=== PATIENT | male | born 1940 | race Hispanic/Latino ===

== ENCOUNTER → 2021-02-14 | Day surgery (SDC) | payer MEDICARE ==
[2021-02-11 13:04] LABS: BASOPHILS % 0.5 % (0.0-1.0); EOSINOPHILS # (AUTO) 0.2 (0.0-0.4); EOSINOPHILS % 2.2 % (0.0-6.0); HEMATOCRIT 33.2 % (38.2-49.6); HEMOGLOBIN 10.4 g/dL (14.0-18.0); LYMPHOCYTES % 38.8 % (18.0-39.1); MEAN CORPUSCULAR HEMOGLOBIN 25.8 pg (28-32); MEAN CORPUSCULAR HGB CONC 31.3 g/dL (31-35); MEAN CORPUSCULAR VOLUME 82.4 fL (81-99); MONOCYTES # (AUTO) 0.5 (0.2-0.8); NEUTROPHILS % 52.1 % (38.7-80.0); PLATELET COUNT 156 x10e3/uL (140-360); RED BLOOD COUNT 4.03 x10e6/uL (4.3-5.7); RED CELL DISTRIBUTION WIDTH 15.4 % (11.7-14.4)
[2021-02-11 14:10] LABS: ANION GAP 13.3 mmol/L (8-16); CALCIUM 9.5 mg/dL (8.4-10.2); CREATININE, SERUM 1.44 mg/dL (0.72-1.25); POTASSIUM 4.3 mmol/L (3.5-5.1)
[~2021-02-14] MED LIST: BACITRACIN ZINC 15 GM OINT ONE; BUPIVACAINE 0.25% 30ML SDV ONE; CEFAZOLIN SOD 1 GM VIAL ONE; EPHEDRINE SULFATE INJ 50 MG/ML VIAL ONE; FENTANYL CITRATE/PF 100MCG/2 ML INJ ONE; FLOMAX0.4 MG PO; LEVEMIR FL100 UNIT/1 SC; LEXAPRO10 MG PO; LIDOCAINE 1% W/EPINEPHRINE 20 ML VIAL ONE; LIDOCAINE HCL 1% LOCAL INJ 20 ML VIAL ONE; LIDOCAINE HCL 2% LOCAL INJ 5 ML SDV VIAL INJ ONE; METOPROLOL SUCC25 MG PO; NOVOLOG100 UNIT/1 SC; ONDANSETRON HCL INJ 2MG/ML 2ML 2 MG/ML VIAL ONE; POVIDONE IODINE 0.05% 0.05 % ML PO ONE; PROPOFOL IV EMULSION 10 MG/ML 20 ML VIAL ONE; SEVOFLURANE INHAL SOLN 250 ML PEN BTL ONE; SIMVASTATIN40 MG PO; TRAZODONE HCL50 MG PO; ZESTRIL2.5 MG PO
[2021-02-14 10:10] VITALS: BP 133/82
== END | disposition home or self-care (01) ==
LOC: OR 05:44
PROVIDERS: ATTEND Surgery
DX: D49.2 Neoplasm of unspecified behavior of bone, soft tissue, and skin (principal); E11.9 Type 2 diabetes mellitus without complications; I10 Essential (primary) hypertension; E78.5 Hyperlipidemia, unspecified; Z99.81 Dependence on supplemental oxygen; Z01.810 Encounter for preprocedural cardiovascular examination; Z01.812 Encounter for preprocedural laboratory examination; Z01.818 Encounter for other preprocedural examination; Z20.822 Contact with and (suspected) exposure to COVID-19; Z79.4 Long term (current) use of insulin
CPT/HCPCS: 14040; 36415 ×2; 71046; 80048; 82948; 85025; 88305; 88365; 93005; J0690; J2001; J2405; J2704; J3010; U0002

== ENCOUNTER 2023-10-16 13:00 | Emergency (ER) | payer MEDICARE ==
[~2023-10-16] VITALS: Ht 165.1 cm; Wt 63.5 kg
[~2023-10-16 13:00] MED LIST changes: -BACITRACIN ZINC 15 GM OINT ONE; -BUPIVACAINE 0.25% 30ML SDV ONE; -CEFAZOLIN SOD 1 GM VIAL ONE; -EPHEDRINE SULFATE INJ 50 MG/ML VIAL ONE; -FENTANYL CITRATE/PF 100MCG/2 ML INJ ONE; -LIDOCAINE 1% W/EPINEPHRINE 20 ML VIAL ONE; -LIDOCAINE HCL 1% LOCAL INJ 20 ML VIAL ONE; -LIDOCAINE HCL 2% LOCAL INJ 5 ML SDV VIAL INJ ONE; -ONDANSETRON HCL INJ 2MG/ML 2ML 2 MG/ML VIAL ONE; -POVIDONE IODINE 0.05% 0.05 % ML PO ONE; -PROPOFOL IV EMULSION 10 MG/ML 20 ML VIAL ONE; -SEVOFLURANE INHAL SOLN 250 ML PEN BTL ONE
[2023-10-16] MEDS ORDERED: SODIUM CHLORIDE 0.9% 1000ML 1,000 ML IV ONE ×2 (13:45→17:30)
[2023-10-16 13:54] LABS: BASOPHILS # (AUTO) 0.1 (0.0-0.1); BASOPHILS % 0.4 % (0.0-1.0); EOSINOPHILS # (AUTO) 0.4 (0.0-0.4); EOSINOPHILS % 3.3 % (0.0-6.0); HEMATOCRIT 38.6 % (38.2-49.6); HEMOGLOBIN 12.4 g/dL (14.0-18.0); LYMPHOCYTES # (AUTO) 1.2 (1.0-3.2); LYMPHOCYTES % 9.8 % (18.0-39.1); MEAN CORPUSCULAR HEMOGLOBIN 29.2 pg (28-32); MEAN CORPUSCULAR HGB CONC 32.1 g/dL (31-35); MONOCYTES # (AUTO) 0.5 (0.2-0.8); MONOCYTES % 3.8 % (4.4-11.3); NEUTROPHILS # (AUTO) 10.2 (2.1-6.9); NEUTROPHILS % 81.8 % (38.7-80.0); PLATELET COUNT 77 x10e3/uL (140-360); RED BLOOD COUNT 4.24 x10e6/uL (4.3-5.7); RED CELL DISTRIBUTION WIDTH 14.6 % (11.7-14.4); WHITE BLOOD COUNT 12.49 x10e3/uL (4.8-10.8)
[2023-10-16 14:12] LABS: ALBUMIN 3.3 g/dL (3.5-5.0); ALBUMIN/GLOBULIN RATIO 1.1 (0.8-2.0); ANION GAP 13.6 mmol/L (8-16); BILIRUBIN,TOTAL 3.3 mg/dL (0.2-1.2); CALCIUM 9.2 mg/dL (8.4-10.2); CREATININE, SERUM 2.85 mg/dL (0.72-1.25); POTASSIUM 4.6 mmol/L (3.5-5.1); TOTAL PROTEIN 6.4 g/dL (6.5-8.1)
[2023-10-16 14:23] LABS: BAND NEUTROPHILS % (MANUAL) 1 %; EOSINOPHILS % (MANUAL) 2 % (0-7); LYMPHOCYTES % (MANUAL) 1 % (19-48); MONOCYTES % (MANUAL) 3 % (3.4-9.0); NEUTROPHILS % (MANUAL) 92 % (40-74); REACTIVE LYMPHOCYTES 1
[2023-10-16 14:24] LABS: PLATELET ESTIMATE MODERATELY DECREASED; PLATELET MORPHOLOGY COMMENT NORMAL; RBC MORPHOLOGY COMMENT NORMAL
[2023-10-16 14:45] LABS: CLARITY,URINE SL CLOUDY (CLEAR); COLOR,URINE YELLOW (YELLOW)
[2023-10-16 14:51] LABS: LEUKOCYTE ESTERASE ,URINE NEGATIVE (NEGATIVE); NITRITE,URINE NEGATIVE (NEGATIVE); PH,URINE 6 (5 - 7); PROTEIN,URINE DIPSTICK 1+ (NEGATIVE)
[2023-10-16 14:52] LABS: BILIRUBIN,URINE MODERATE (NEGATIVE); GLUCOSE, URINE NEGATIVE (NEGATIVE); KETONES,URINE TRACE (NEGATIVE); URINE UROBILINOGEN 2 mg/dL (0.2 - 1)
[2023-10-16 14:56] LABS: AMORPHOUS SEDIMENT,URINE MODERATE (FEW); BACTERIA,URINE MODERATE /HPF; RBC,URINE 0-5 /HPF (0-5); WBC,URINE (MAN) 0-5 /HPF (0-5)
[2023-10-16 17:03] LABS: INR 1.5; PROTHROMBIN TIME 18.4 seconds (11.9-14.5)
[2023-10-16 17:04] LABS: PARTIAL THROMBOPLASTIN TIME 41.3 seconds (23.8-35.5)
[2023-10-16 21:54] VITALS: BP 128/74; PULSE 77; RESP 16; TEMP 98.1; O2SAT 97
== END 2023-10-16 21:15 | disposition short-term general hospital (02) ==
LOC: ER 13:24
DX: R10.13 Epigastric pain (principal); N17.9 Acute kidney failure, unspecified; R94.5 Abnormal results of liver function studies; R74.8 Abnormal levels of other serum enzymes; R11.0 Nausea; R53.1 Weakness; E11.65 Type 2 diabetes mellitus with hyperglycemia; I10 Essential (primary) hypertension; E78.5 Hyperlipidemia, unspecified
CPT/HCPCS: 36415; 74176; 76705; 80053; 81001; 83690; 84484; 85025; 85610; 85730; 93005; 99284; J7030